=== PATIENT | female | born 1965 | race Hispanic/Latino ===

== ENCOUNTER 2021-08-13 12:37 | Outpatient (CLI) | payer OTHER ==
[2021-08-13 14:30] LABS: Hemoglobin 13.5 g/dL (12.0-15.5); Mean Corpuscular HGB CONC 32.9 g/dL (32.0-36.0); Mean Corpuscular Volume 94.3 fl (81.6-98.3); Mean Platelet Volume 9.5 fl (7.4-10.4); Platelet Count 272 10x3/uL (150-450); RBC Distribution Width 11.9 % (11.5-14.5); Red Blood Cell (RBC) Count 4.35 10x6/uL (3.90-5.03); White Blood Cell (WBC) Count 7.2 10x3/uL (3.5-10.5)
[2021-08-13 14:40] LABS: Anion Gap 15 mmol/L (10-20); BUN (Urea Nitrogen) 20 mg/dL (9.8-20.1); Calc. Creatinine Clearance 0 mL/min (70-130); Calcium 9.3 mg/dL (7.8-10.44); Carbon Dioxide 27 mmol/L (22-29); Chloride 103 mmol/L (98-107); Glucose 84 mg/dL (70-105); Potassium 4.5 mmol/L (3.5-5.1); Sodium 140 mmol/L (136-145)
[2021-08-14 12:54] LABS: SARS-CoV-2 PCR by NAA Not Detected (NotDetected)
== END 2021-08-13 12:38 | disposition home or self-care (01) ==
LOC: CSHLAB 12:37
PROVIDERS: ATTEND Orthopaedic Surgery
DX: Z01.812 Encounter for preprocedural laboratory examination (principal); Z20.822 Contact with and (suspected) exposure to COVID-19; S73.191A Other sprain of right hip, initial encounter; M25.859 Other specified joint disorders, unspecified hip
CPT/HCPCS: 80048; 85027; U0003; U0005

== ENCOUNTER 2021-08-18 05:59 | Day surgery (SDC) | payer OTHER ==
[2021-08-10 15:50] VITALS: BMI 26.1
[2021-08-18] MEDS ORDERED: Tranexamic Acid 1,000 MG/10 ML VIAL ONE (06:43)
[2021-08-18] MEDS ORDERED: EPINEPHrine 1 MG/ML AMP ONE ×2 (06:43→09:31)
[2021-08-18] MEDS ORDERED: Midazolam HCl 2 mg/2 ml Vial ONE ×2 (07:22→07:29)
[2021-08-18] MEDS ORDERED: PROPOFOL 20 ML ONE (07:29)
[2021-08-18] MEDS ORDERED: Fentanyl 100 MCG/2 ML VIAL ONE ×2 (07:29→11:32)
[2021-08-18] MEDS ORDERED: Lidocaine 1% PF 5 ML VIAL ONE (07:30)
[2021-08-18] MEDS ORDERED: Rocuronium Bromide 10 MG/ML (10ML VIAL) ONE (07:30)
[2021-08-18] MEDS ORDERED: Metoclopramide HCl 10 MG/2 ML VIAL ONE (07:30)
[2021-08-18] MEDS ORDERED: Ondansetron PF 4 MG/2 ML Vial ONE (07:30)
[2021-08-18] MEDS ORDERED: ceFAZolin 2 GM/Dextrose 50 ML IVPB ONE (08:30)
[2021-08-18] MEDS ORDERED: ePHEDrine Sulfate 50 MG/10 ML VIAL ONE (08:59)
[2021-08-18] MEDS ORDERED: Bupivacaine PF 0.5% 30 ML VIAL ONE (09:31)
[2021-08-18] MEDS ORDERED: Glycopyrrolate 0.2 MG/ML 5 ML SYRINGE ONE (10:38)
[2021-08-18] MEDS ORDERED: Ketorolac Tromethamine 30 MG/ML VIAL ONE (11:23)
[2021-08-18] MEDS ORDERED: Ropivacaine 0.2% HCl/PF 40 ML ONE (12:59)
[2021-08-18] MEDS ORDERED: Lidocaine 1% MPF 2 ML VIAL ONE (13:00)
== END 2021-08-18 13:55 | disposition home or self-care (01) ==
LOC: CSHSDC 05:59
PROVIDERS: ATTEND Orthopaedic Surgery
PROC: 0QB64ZZ Excision of Right Upper Femur, Percutaneous Endoscopic Approach (ICD-10-PCS; principal; 2021-08-18)
PROC: 0SQ94ZZ Repair Right Hip Joint, Percutaneous Endoscopic Approach (ICD-10-PCS; principal; 2021-08-18)
PROC: 0QB44ZZ Excision of Right Acetabulum, Percutaneous Endoscopic Approach (ICD-10-PCS; principal; 2021-08-18)
DX: S73.101A Unspecified sprain of right hip, initial encounter (principal); M24.851 Other specific joint derangements of right hip, not elsewhere classified; M25.851 Other specified joint disorders, right hip; M70.61 Trochanteric bursitis, right hip
CPT/HCPCS: C1713; J0171; J0690; J1885; J2250; J2405; J2704; J2765; J2795; J3010; S0020